=== PATIENT | male | born 1995 | race African-American/Black ===

== ENCOUNTER 2019-04-04 09:22 | Outpatient (CLI) | payer OTHER ==
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
[~2019-04-04] VITALS: Ht 175.3 cm; Wt 57.5 kg
[2019-04-04 09:59] VITALS: BP 96/61; PULSE 58; TEMP 98.6
--- NOTE | 2019-04-04 13:23 | NUR ---
pt transfered from [facility] to express room 9. bedside hand off report given to david vann. pt is alert and oriented. pt has no complaints of dizziness at this time.
[2019-04-04 13:30] VITALS: BP 115/80; PULSE 59
--- NOTE | 2019-04-04 14:03 | NUR ---
Pt ready for departure.I reveiwed dc and fu instructions with pt. pt denies any questions at time of departure. IV dc'd with cath intact, dressing applied. I walked with pt to exit, he is driving himself home. he has no complaint of dizziness at this time.
== END 2019-04-04 14:30 | disposition home or self-care (01) ==
LOC: COL.CAR 09:22
DX: R55 Syncope and collapse (principal); I08.1 Rheumatic disorders of both mitral and tricuspid valves; Z53.8 Procedure and treatment not carried out for other reasons; Z87.891 Personal history of nicotine dependence